=== PATIENT | male | born 1995 | race Caucasian/White ===

== ENCOUNTER 2021-10-15 08:47 | Emergency (ER) | payer OTHER, SELFPAY ==
--- NOTE | ~2021-10-15 | XR_ITS ---
EXAMINATION: XR soft tissue neck EXAM DATE: 10/15/2021 11:00 INDICATION: Possible metallic foreign body right anterior neck. TECHNIQUE: Frontal and lateral projections of the neck soft tissues. There is no prior study for co mparison. FINDINGS: There is irregular shaped metallic density measuring about 4 mm in size near the expected location of the right thyroid lobe. No other radiopaque foreign bodies. The airway is unremarkable. P revertebral soft tissue and pre-dens space are within normal limits. The odontoid process is intact. The lateral masses of C1 line up with C2. Lung apices clear. IMPRESSION: Small metallic foreign body identified. Reviewed, dictated and finalized at location B. [employer]DER
--- NOTE | ~2021-10-15 | XR_ITS ---
EXAMINATION: XR soft tissue neck EXAM DATE: 10/15/2021 12:28 INDICATION: Post foreign body removal . TECHNIQUE: Neck frontal and lateral findings. Comparison is made to prior examination from earlier s pauly date. FINDINGS: Previously seen metallic foreign body density is no longer identified, has been removed. M ild cervical spondylosis. Otherwise unremarkable exam. IMPRESSION: No radiopaque foreign bodies identified. Reviewed, dictated and finalized at location B. [employer]IVE
[2021-10-15 08:53] VITALS: BP 155/87; PULSE 79; RESP 18; TEMP 36.5; O2SAT 100
[2021-10-15 10:15] VITALS: BP 174/90; PULSE 71; RESP 18; O2SAT 99
--- NOTE | 2021-10-15 10:50 | ED.SKABFB ---
HPI - Skin/Abscess/Foreign Bdy General Chief complaint: Skin/Abscess/Foreign Body <CHAD Bolivar Last Filed: 10/15/21 13:23> Stated complaint: small piece of metal in my neck <Shiloh Ball PA-C - Last Filed: 10/15/21 13:23> Time Seen by Provider: 10/15/21 10:18 <CHAD Bolivar Last Filed: 10/15/21 13:23> Source: patient <CHAD Bolivar Last Filed: 10/15/21 13:23> Mode of arrival: ambulatory <CHAD Bolivar Last Filed: 10/15/21 13:23> Limitations: no limitations <CHAD Bolivar Last Filed: 10/15/21 13:23> History of Present Illness HPI narrative: This is a 26 year old male that presents to the ER for possible foreign body in the skin. Reports he was at work and he felt a small piece of metal fly at him and into his neck. Reports a small laceration to the area. His friend used a magnet and his skin moved with the magnet so he thought there was something stuck in there. He is not up to date on tetanus. <CHAD Bolivar Last Filed: 10/15/21 13:23> Related Data Home medications: Home Medications Medication Instructions Recorded Confirmed No Home Medications 10/15/21 10/15/21 <CHAD Bolivar Last Filed: 10/15/21 13:23> Allergies/Adverse reactions: Allergies Allergy/AdvReac Type Severity Reaction Status Date / Time No Known Allergies Allergy Verified 10/15/21 10:15 <CHAD Bolivar Last Filed: 10/15/21 13:23> Review of Systems Review of Systems: CONSTITUTIONAL: Denies fever SKIN: Reports laceration <CHAD Bolivar Last Filed: 10/15/21 13:23> All systems reviewed & are unremarkable except as noted in HPI and below <CHAD Bolivar Last Filed: 10/15/21 13:23> [facility] Past Medical History Medical History: Medical History (Updated 10/15/21 @ 13:21 by Shiloh Ball PA-C) No active medical problems <Shiloh Ball PA-C - Last Filed: 10/15/21 13:23> Social History Social History: Social History (Updated 10/15/21 @ 10:52 by Shiloh Ball PA-C) Smoking status: Never smoker <Shiloh Ball PA-C - Last Filed: 10/15/21 13:23> Exam Narrative: GENERAL: Well-appearing, well-nourished, and in no acute distress. HEAD: Normocephalic, atraumatic. EYES: EOMI. NECK: Supple. No adenopathy or masses. Right anterior neck with small, superficial (0.5cm) laceration. I did explore the wound and do not see any obvious foreign bodies. CHEST: No respiratory distress. HEART: Regular rate EXTREMITIES: Normal range of motion. No edema. SKIN: Warm, dry, no rash. NEURO: No focal deficits. Alert and oriented x3. PSYCH: Normal mood and affect <Shiloh Ball PA-C - Last Filed: 10/15/21 13:23> Course Vital Signs Vital signs: Vital Signs Temperature 97.7 F 10/15/21 08:53 Pulse Rate 79 10/15/21 08:53 Respiratory Rate 18 10/15/21 08:53 Blood Pressure 155/87 H 10/15/21 08:53 Pulse Oximetry 100 10/15/21 08:53 Temperature 97.7 F 10/15/21 08:53 Pulse Rate 77 10/15/21 13:27 Respiratory Rate 18 10/15/21 13:27 Blood Pressure 141/104 H 10/15/21 13:27 Pulse Oximetry 98 10/15/21 13:27 <Shiloh Ball PA-C - Last Filed: 10/15/21 13:23> Procedures Foreign Body Removal Foreign Body #1: Foreign Body Removal Date: 10/15/21 <Shiloh Ball PA-C - Last Filed: 10/15/21 13:23> Foreign Body Removal Time: 12:20 <Shiloh Ball PA-C - Last Filed: 10/15/21 13:23> Site: right <Shiloh Ball PA-C - Last Filed: 10/15/21 13:23> Description of foreign body: other (metal) <CHAD Bolivar Last Filed: 10/15/21 13:23> Sedation/Analgesia: none <Shiloh Ball PA-C - Last Filed: 10/15/21 13:23> Technique: removal with forceps <CHAD Bolivar Last Filed: 10/15/21 13:23> Confirmed by:: direct visualization and radiograph <
[2021-10-15] MEDS: TETANUS,DIPHTHERIA,AC PERTUSSIS ADULT (0.5 ML) BOOSTRIX IM (11:09)
[2021-10-15] MEDS: CEPHALEXIN 500 MG CAPSULE PO (12:49)
[2021-10-15 13:27] VITALS: BP 141/104; PULSE 77; RESP 18; O2SAT 98
== END 2021-10-15 13:28 | disposition home or self-care (01) ==
PROVIDERS: Emergency Provider General Practice
DX: S11.92XA Laceration with foreign body of unspecified part of neck, initial encounter (principal); Z23 Encounter for immunization; W20.8XXA Other cause of strike by thrown, projected or falling object, initial encounter
CPT/HCPCS: 70360; 90471; 90715; 99283; A9270

== ENCOUNTER 2023-06-27 20:47 | Emergency (ER) | payer OTHER, SELFPAY ==
--- NOTE | ~2023-06-27 | XR_ITS ---
EXAM: XR finger 2nd RT min 2V DATE: 06/27/2023 21:37 HISTORY: lawnmower injury, lac to distal 2nd digit . COMPARISON: None available. FINDINGS: Normal mineralization. Mildly comminuted, minimally displaced fracture of the right second distal tuft, with overlying soft tissue injury and debris. No lytic or blastic lesion. Joint spaces and physes are maintained. No erosion or periosteal change. IMPRESSION: Mildly comminuted, minimally displaced fracture of the right second distal tuft with over lying soft tissue injury and debris, likely representing an open fracture. Reviewed, dictated and finalized at location K. IMPRESSION: Mildly comminuted, minimally displaced fracture of the right second distal tuft with overlying soft tissue injury and debris, likely representing an open fracture.
[2023-06-27 20:56] VITALS: BP 131/83; PULSE 71; RESP 14; TEMP 36.5; O2SAT 100
[2023-06-27] MEDS: ceFAZolin SODIUM 1 GM VIAL IM (22:49)
--- NOTE | 2023-06-27 23:06 | ED.WOUNDLAC ---
HPI - Wound/Laceration General Chief Complaint: Wound/Laceration Stated Complaint: laceration Time Seen by Provider: 06/27/23 21:36 Source: patient Mode of arrival: ambulatory Limitations: no limitations History of Present Illness HPI narrative: Patient is a 27-year-old male who presents to the ED with report of injury to his right second finger. Patient reports he was mowing the grass earlier today when he reached down to unclog the mower blades and sustained a laceration to his right second digit fingertip. There is nail involvement. Patient denies any numbness or tingling. Tetanus up-to-date within the last 1 year. No other injuries. Related Data Allergies Allergy/AdvReac Type Severity Reaction Status Date / Time No Known Allergies Allergy Verified 06/27/23 21:23 Review of Systems Review of Systems: CONSTITUTIONAL: Denies fever, chills, or sweats. SKIN: See HPI. MUSCULOSKELETAL: See HPI. NEUROLOGIC: Denies headache, numbness, or weakness. All systems reviewed & are unremarkable except as noted in HPI and below PMFSH Past Medical History Medical History No active medical problems Social History Social History Smoking status: Never smoker Exam Narrative: GENERAL: Well appearing, well-nourished, non-toxic, in no acute distress. HEAD: Normocephalic, atraumatic. NECK: Supple. No adenopathy, no masses. RESPIRATORY: Airway patent, respirations nonlabored. CARDIOVASCULAR: Regular rate and rhythm without murmurs, rubs, or gallops. Radial pulses 2+ and equal bilaterally. MUSCULOSKELETAL: Moves all extremities. Right second finger distal finger pad tip with partial skin avulsion, with subcutaneous fat exposed. Superficial laceration extending on either edge of avulsion. Laceration noted through to mid nail plate, no obvious involvement into nailbed. Cuticle intact. No significant active bleeding. Focal tenderness to palpation. Sensation intact. Full range of motion of finger. SKIN: Warm, dry, normal color. No rashes. NEURO: A&O X3. Speech clear. Cranial nerves II-XII grossly intact. Steady gait. No ataxic movements. PSYCHIATRIC: Appropriate mood and affect. Normal interaction. Course Vital Signs Vital signs: Vital Signs Temperature 97.7 F 06/27/23 20:56 Pulse Rate 71 06/27/23 20:56 Respiratory Rate 14 06/27/23 20:56 Blood Pressure 131/83 06/27/23 20:56 Pulse Oximetry 100 06/27/23 20:56 Oxygen Delivery Room Air 06/27/23 20:56 Temperature 97.7 F 06/27/23 20:56 Pulse Rate 78 06/28/23 00:50 Respiratory Rate 14 06/28/23 00:50 Blood Pressure 133/79 06/28/23 00:50 Pulse Oximetry 97 06/28/23 00:50 Oxygen Delivery Room Air 06/27/23 20:56 Procedures Laceration Laceration 1: Date: 06/28/23 Time: 23:30 Site: hand Side (If applicable): right (2nd digit) Size (cm): 1 Description: irregular Depth: simple, single layer Local Anesthetic: other anesthetic (digital block) Pre-repair: wound explored, irrigated and irrigated extensively ====== Skin Level ====== Skin layer closed with: nylon Size (cm): 4-0 Number of sutures: 4 Technique: simple, interrupted ====== Subcutaneous Layer ====== ====== Muscle Layer ====== ====== Tendon Layer ====== Nerve Block Nerve Block 1: Nerve block date: 06/27/23 Nerve block time: 23:20 Time out performed: Yes Local Anesthetic: lidocaine 1% Amount of anesthesia used (mL): 5 Side: right Nerve Blocks: digital (2nd digit) Procedure Successful: Yes Patient Tolerated Procedure: well and no complications Complications: none MDM - Wound/Laceration MDM Narrative Medical decision making narrative: Patient presented to ED with lawnmower accident
[2023-06-28 00:50] VITALS: BP 133/79; PULSE 78; RESP 14; O2SAT 97
== END 2023-06-28 00:51 | disposition home or self-care (01) ==
PROVIDERS: Emergency Provider Physician Assistant
DX: S62.630B Displaced fracture of distal phalanx of right index finger, initial encounter for open fracture (principal); W28.XXXA Contact with powered lawn mower, initial encounter
CPT/HCPCS: 12001; 29130; 73140; 96372; 99283; 99284; J0690